=== PATIENT | male | born 1980 | race Two or more races ===

== ENCOUNTER 2018-02-13 18:33 | Emergency (ER) | payer OTHER ==
[~2018-02-13] VITALS: Ht 170.2 cm; Wt 111.1 kg
[~2018-02-13 18:33] MED LIST: KETO10TA2 PO; LISINOPRIL20 MG PO; NAPROXEN500 M1 PO; TESSALON PERLE100 M1 PO; TUSSI PRES-B L120 M1 PO; VASOTEC10 MG PO
[2018-02-13] MEDS ORDERED: BENADRYL25 MG (18:43)
== END 2018-02-13 21:12 | disposition home or self-care (01) ==
LOC: ER 18:33
DX: B86 Scabies (principal); J06.9 Acute upper respiratory infection, unspecified

== ENCOUNTER 2019-05-23 20:00 | Inpatient (IN) | payer OTHER ==
[~2019-05-23] VITALS: Ht 177.8 cm; Wt 140.6 kg
[~2019-05-23 20:00] MED LIST changes: +BENADRYL25 MG
--- NOTE | 2019-05-23 20:30 | NUR ---
PTE ALERTA Y ORIENTADO X3, PTE REFIERE QUE HACE MEDIA HORA COMENZO CON DOLOR DE PECHO QUE SE IRRADIA HASTA EL BRAZO ART Y REFIERE ESTAR DIAFORETICO. SE LE REALIZA EKG Y SE LE PRESENTA A . SE COLOCA PTE EN UNIDAD DE DOLOR DE PECHO.
--- NOTE | 2019-05-23 20:35 | NUR ---
SE RECIBE PTE A LIZZIE DE EMERGENCIAS AREA DE CHEST PAIN UNIT,PTE MASCULINO DE 40 YRS,PTE ALERTA X 3, PTE REFIERE DOLOR DE PECHO CON LA ESCALA DE DOLOR # 8, SE ACOMODA EN MARGAUX # 17 Y SE CONECTA A MONITOR CARDIACO Y OXIMETRIA DE PULSO, SE LE COLOCA CANULA NASAL @ 2LTS X MINUTOS,DR Karthik'SALINAS EVALUA Y ORDENA H/L CON MEDICAMENTOS Y LABORATORIOS,SE OBSERVARAN POR CAMBIOS EN ALMANZA CONDICION DE EFR.
--- NOTE | 2019-05-23 23:00 | NUR ---
SE RECIBE PTE DEL TURNO ANTERIOR, ALERTA Y ORIENTADO X 3 ESFERAS, EN MARGAUX NIVEL MAS BAJO, MARTINEZ DE IDENTIFICACION Y BRANADAS ELEVADAS POR PRECAUCION. SE OBSERVA CONECTADO A MONITOR CARDIACO. SE OBSERVA PTE CON CANULA NASAL LA CUAL TOLERA, SATURANDO 98%. PIEL TIBIA AL TACTO. IV EN MANO LT PATENTE Y TRESA DE EDEMA O ERITEMA CON 0.9% NSS @60. PTE CON ORDEN DE TRIDIL 50MG/250ML, EL CUAL NO LO TIENE AL MOMENTO. PTE REFIERE DOLOR DARON 6 EN BRAZO LT Y PECHO LADO LT, INDICA SENTIR ADORMECIMIENTO EN LAS PIERNAS. SE MIDEN S/V, SE NOTIFICA B/P 98/70, MANUAL A DR MENDOZA QUIEN INDICA MANTENER AL PTE SIN TRIDIL Y AUMENTAR RATE DE 0.9% NSS @150ML/HR. SE NOTIFICA DOLOR DE PTE QUIEN ORDENA TORADOL 30MG IV ONCE. SE MANTIENE BAJO OBSERVACION EN MARGAUX NIVEL MAS BAJO, MARTINEZ DE IDENTIFICACION Y BARANDAS ELEVADAS POR PRECAUCION, CONECTADO A MONITOR CARDIACO Y OXIMATRIA DE PULSO. PENDIENTE A REALIZAR SEGUNDA TROPONINAS A LAS 12:30, DR MENDOZA INDICA.
--- NOTE | 2019-05-24 07:08 | NUR ---
SE RECIBE PACIENTE ALERTA Y ORIENTADO X3 EN MARGAUX CON BARANDAS ELEVADAS Y CONECTADO A TELEMETRIA Y OXIMETRIA CON CANULA NASAL A 2 LITROS. PACIENTE SE ENCUNETRA CON IVF 0.9% NACL BAJANDO A 100 ML/HR CON LINEA IV PATENTES Y AREA DE VENOPUNCION TRESA DE EDEMA Y SANGRADO. PACIETNE TIENE PENDIENTE CONSULTA CON DR. MERCY HERNANDEZ.
== END 2019-05-26 22:34 | disposition home or self-care (01) | DRG 305 ==
LOC: ER 20:00 → MEDJ 05-24 12:58
PROVIDERS: ADMIT Internal Medicine
PROC: B246ZZZ Ultrasonography of Right and Left Heart (ICD-10-PCS; principal; 2019-05-24)
PROC: 4A12X4Z Monitoring of Cardiac Electrical Activity, External Approach (ICD-10-PCS; 2019-05-24)
PROC: 4A02XM4 Measurement of Cardiac Total Activity, External Approach (ICD-10-PCS; 2019-05-24)
PROC: 3E073KZ Introduction of Other Diagnostic Substance into Coronary Artery, Percutaneous Approach (ICD-10-PCS; 2019-05-24)
DX: I11.9 Hypertensive heart disease without heart failure (principal); I24.8 Other forms of acute ischemic heart disease; E66.8 Other obesity

== ENCOUNTER 2019-09-01 02:18 | Emergency (ER) | payer OTHER ==
[~2019-09-01] VITALS: Ht 170.2 cm; Wt 115.2 kg
== END 2019-09-01 14:56 | disposition home or self-care (01) ==
LOC: ER 02:18
DX: K52.89 Other specified noninfective gastroenteritis and colitis (principal)

== ENCOUNTER 2019-10-16 21:01 | Emergency (ER) | payer OTHER ==
[~2019-10-16] VITALS: Ht 170.2 cm; Wt 115.7 kg
[2019-10-16] MEDS ORDERED: ZESTRIL10 M1 PO (21:22)
[2019-10-16] MEDS ORDERED: LISINOPRIL10 MG PO (21:22)
[2019-10-16] MEDS ORDERED: NABUMETONE750 MG PO (21:38)
== END 2019-10-16 21:54 | disposition home or self-care (01) ==
LOC: ER 21:01
DX: M94.0 Chondrocostal junction syndrome [Tietze] (principal)

== ENCOUNTER 2020-08-21 22:41 | Emergency (ER) | payer OTHER ==
[~2020-08-21] VITALS: Ht 172.7 cm; Wt 113.4 kg
[~2020-08-21 22:41] MED LIST changes: +LISINOPRIL10 MG PO; +NABUMETONE750 MG PO; +ZESTRIL10 M1 PO
[2020-08-22] MEDS ORDERED: VISTARIL50 MG PO (06:39)
== END 2020-08-22 06:56 | disposition home or self-care (01) ==
LOC: ER 22:41
DX: B34.9 Viral infection, unspecified (principal); R07.89 Other chest pain; Z03.818 Encounter for observation for suspected exposure to other biological agents ruled out; R06.02 Shortness of breath